=== PATIENT | female | born 1960 | race Caucasian/White ===

== ENCOUNTER 2018-08-27 14:25 | Inpatient (IN) | payer OTHER ==
[~2018-08-27] VITALS: Ht 157.5 cm; Wt 49.4 kg
[2018-08-27 14:26] VITALS: BP 110/75
[2018-08-27 16:46] LABS: URINE BILIRUBIN NEGATIVE (Negative); URINE BLOOD 2+ (Negative); URINE CLARITY SL CLOUDY; URINE COLOR YELLOW; URINE GLUCOSE-RANDOM* NEGATIVE (Negative); URINE KETONES NEGATIVE (Negative); URINE LEUKOCYTES-REFLEX 1+ (Negative); URINE NITRITE-REFLEX NEGATIVE (Negative); URINE PROTEIN (DIPSTICK) NEGATIVE (Negative); URINE SPECIFIC GRAVITY 1.025 (1.005-1.035); URINE UROBILINOGEN 0.2 E.U./dl (0.2-1.0)
[2018-08-27 16:55] LABS: MUCUS >6 Heavy strn/LPF (None Seen); SQUAMOUS 0-3 Few /LPF (0-3)
[2018-08-27 16:56] LABS: BACTERIA-REFLEX None Seen /HPF (None Seen); CRYSTALS None Seen /LPF (None Seen); HYALINE CASTS 0-3 Few /LPF (None Seen); URINE RBC 3-10 Few /HPF (0-2); YEAST-REFLEX Present (None Seen)
[2018-08-27 17:32] LABS: ABSOLUTE NEUTROPHILS 2.8 thou/uL (1.4-8.2); BASOPHILS 1.2 % (0.0-2.0); EOSINOPHILS 8.1 % (0.0-3.0); HEMATOCRIT 31.7 % (37.0-47.0); HEMOGLOBIN 10.7 gm/dL (12.0-15.0); LYMPHOCYTES 37.4 % (24.0-44.0); MCH 32.7 pg (26.0-34.0); MCHC 33.8 g/dL (28.0-37.0); MCV 96.7 fL (80.0-100.0); MONOCYTES 7.9 % (1.0-8.0); PLATELET COUNT 278 thou/uL (150-400); POLYS 45.4 % (36.0-66.0); RBC 3.27 mil/uL (4.20-5.00); RDW 14.7 % (10.5-14.5); WBC 6.1 thou/uL (4.0-11.0)
[2018-08-27 17:42] LABS: CALCIUM 8.8 mg/dL (8.5-10.1); CREATININE 0.7 mg/dL (0.6-1.0); POTASSIUM 4.2 mmol/L (3.5-5.1)
[2018-08-27 17:48] LABS: ALBUMIN 3.4 g/dL (3.4-5.0); TOTAL BILIRUBIN 0.2 mg/dL (<0.1-1.0); TOTAL PROTEIN 6.3 g/dL (6.4-8.2)
[2018-08-27 19:10] VITALS: BP 132/88
[2018-08-27] MEDS ORDERED: BUPROPION HCL100 MG PO (19:18)
[2018-08-27] MEDS ORDERED: ZOVIRAX200 MG PO (19:18)
[2018-08-27] MEDS ORDERED: DULCOLAX5 MG PO (19:23)
[2018-08-27] MEDS ORDERED: CYMBALTA60 MG PO (19:24)
[2018-08-27] MEDS ORDERED: VALIUM5 MG PO (19:24)
[2018-08-27] MEDS ORDERED: DONEPEZIL HCL5 MG PO (19:24)
[2018-08-27] MEDS ORDERED: EMGALITY120 MG/1 M SUBQ (19:24)
[2018-08-27] MEDS ORDERED: ESTRADIOL 1 MG T1 M1 PO (19:25)
[2018-08-27] MEDS ORDERED: HYDROCODON-ACE1 EAC8 PO (19:26)
[2018-08-27] MEDS ORDERED: KLOR-CON 1010 MEQ PO (19:27)
[2018-08-27] MEDS ORDERED: TOFRANIL50 MG PO (19:27)
[2018-08-27] MEDS ORDERED: TOPROL XL25 MG PO (19:28)
[2018-08-27] MEDS ORDERED: NUVIGIL250 MG PO (19:29)
[2018-08-27 19:30] VITALS: BP 120/71
[2018-08-27] MEDS ORDERED: MIRALAX17 GM PO ×2 (19:30→19:33)
[2018-08-27] MEDS ORDERED: VITAMIN D5000 UNIT PO (19:32)
[2018-08-27] MEDS ORDERED: TROSPIUM CHLORI60 MG PO (19:32)
[2018-08-27] MEDS ORDERED: ZANAFLEX4 MG PO (19:32)
[2018-08-27 19:56] VITALS: BP 103/79
[2018-08-28] MEDS ORDERED: ESTRADIOL 1 MG T1 M1 VAG (01:55)
[2018-08-28] MEDS ORDERED: TOPROL XL25 MG PO (01:58)
[2018-08-28] MEDS ORDERED: BUTORPHANOLNS NASAL (02:03)
[2018-08-28] MEDS ORDERED: CYMBALTA60 MG PO (02:03)
[2018-08-28] MEDS ORDERED: FLONASE 0.05%50 MCG NASAL (02:12)
[2018-08-28] MEDS ORDERED: KLOR-CON 1010 MEQ PO (02:13)
[2018-08-28] MEDS ORDERED: IMIPRAMINE PAMO75 MG PO (02:13)
[2018-08-28] MEDS ORDERED: UNICOMPLEX M TA1 TA1 PO (02:14)
[2018-08-28] MEDS ORDERED: SUMATRIPTAN20 MG PO (02:16)
[2018-08-28 04:24] VITALS: BP 117/71
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
[2018-08-28 07:04] VITALS: BP 110/70
[2018-08-28] MEDS ORDERED: AUGMENTIN 875-1 EACH PO (10:26)
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
[2018-08-28 19:09] VITALS: BP 118/74
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
--- NOTE | 2018-08-29 05:05 | NUR ---
Pt. rested quietly at intervals during the night when checked on during frequent rounds. She offers no complaints of pain or discomfort. Refused to be turned and repositioned.
[2018-08-29 08:15] VITALS: BP 117/75
--- NOTE | 2018-08-29 11:56 | NUR ---
DISCHARGE PLANNING. PATIENT IS READY FOR DISCHARGE TODAY. POST ACUTE RECOMMENDED AT DISCHARGE. PATIENT REQUESTING REFERRAL FOR POST [facility] C[facility] REFERRAL FAXED TO FACILITY, AWAITING RESPONSE. PATIENT IN NEED OF SKILLED AND THEN TRANSITIONING TO ASSISTED LIVING WITH PRIVATE DUTY CARE GIVERS OR EXHIBITION CARVER CARE. FACILITY AWARE. FOLLOWING TO ASSIST WITH DISCHARGE.
--- NOTE | 2018-08-29 14:29 | NUR ---
REFERRAL WAS SENT TO [facility] IN [facility] FOR REVIEW FOR SKILLED REHAB STAY. PT AND PT'S FAMILY ARE AWARE. CM TO FOLLOW INDICATED WITH DC PLANNING.
[2018-08-29 14:42] VITALS: BP 120/74
--- NOTE | 2018-08-29 20:08 | NUR ---
ASSUMED CARE O700. ALERT X4, ABLE TO MAKE NEEDS KNOWN, PAIN MANAGED WITH MEDIATIONS, RUTHIE FOR RETENTION PURPOSE. UP WITH MIN ASSIST TO PIVOT TRANSFERS. REDNESS NOTED TO BILATERAL LE. R CHEST PORT. NO BM NOTED TO DAY. FALL PRECAUTION IN PLACE. WAITING FOR PLACEMENT. HOME MEDS IN PHARMACY.
[2018-08-29 20:35] VITALS: BP 122/76
--- NOTE | 2018-08-30 05:42 | NUR ---
progress pt progressing vss afebrile. ernst in place draining clear yellow urine. right chest port accessed has good blood return and flushes without difficulty, skin clean and dry and intact. pt able to reposition self in bed reports back pain and taking hydrocodone with effect. iv antibiotics administered as ordered. plan to dc to inpt rehab and then transition to ltc or snf.
[2018-08-30 08:16] VITALS: BP 112/73
--- NOTE | 2018-08-30 12:27 | NUR ---
Received awake on bed. Due medications given. A+Ox4. On room air. Assisted in ADLs. With ernst in place- output measured and recorded accordingly. On Left limb alert. With R Chest port- intact and flushing well, on saline lock. Complained of pain, due PRN pain meds given as prescribed. Pt repositioned regularly. Pt asked if she could be discharged today, Dr ty- a/w discharge orders. Pt's son in law talked to me and said that pt wishes to go home with her - CM informed, CM talked to pt and her daughter at bedside; pt decided to stay in the hospital for the meantime. Vital signs stable.
[2018-08-30 16:45] VITALS: BP 124/81
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
[2018-08-30 19:44] VITALS: BP 128/90
--- NOTE | 2018-08-31 00:57 | NUR ---
AMA PT REQUESTED COPY OF AMA FORM SHE HAD REFUSED TO SIGN EARLIER IN DAY. COPY PROVIDED AND PT ADVISED THAT PHYSICIAN DID NOT WANT TO WRITE DISCHARGE ORDERS HE WASN'T SURE IF SHE WOULD BE GOING TO A SAFE ENVIRONMENT. PT INSISTED ON GOING HOME WITH SPOUSE LORAINE. DISCUSSED RISKS INVOLVED IN LEAVING AMA AND PT REVERBALIZED UNDERSTANDING. RUTHIE MAYS DEACCESSED SPOUSE ASSISTED PT WITH DRESSING TOLIETING. PHARMACY SLIPS GIVEN SO PT COULD RETRIEVE HOME MEDS FROM PHARMACY. SPOUSE WHEELED HER OUT IN WHEELCHAIR.
== END 2018-08-31 00:15 | disposition home or self-care (01) | DRG 690 ==
LOC: ER 14:25 → EDBD 18:02 → 4W 18:02 → EROBS 18:02 → 4W 19:35
PROVIDERS: Nurse Practitioner Family; ADMIT Hospitalist
DX: N39.0 Urinary tract infection, site not specified (principal); T74.21XA Adult sexual abuse, confirmed, initial encounter; G35 Multiple sclerosis; I10 Essential (primary) hypertension; N93.9 Abnormal uterine and vaginal bleeding, unspecified; Z79.1 Long term (current) use of non-steroidal anti-inflammatories (NSAID); Z79.899 Other long term (current) drug therapy; Z88.2 Allergy status to sulfonamides
CPT/HCPCS: 10040